=== PATIENT | male | born 1970 | race Caucasian/White ===

== ENCOUNTER → 2018-02-28 14:11 | Outpatient (REF) | payer OTHER, SELFPAY ==
[2018-02-28 20:48] LABS: Abs Immature Grans 0.02 k/cumm (0.0-0.09); Absolute Basophil Count 0.01 k/cumm (0.0-0.2); Absolute Eosinophil Count 0.07 k/cumm (0.0-0.7); Absolute Lymphocyte Count 0.82 k/cumm (1.2-3.4); Absolute Monocyte Count 0.76 k/cumm (0.11-0.7); Absolute Neutrophil Count 4.38 k/cumm (1.2-6.7); Basophils % 0.2; Eosinophils % 1.2; Immature Grans % 0.3; Lymphocytes % 13.5; Mean Corp. HGB Concentration 34.8 g/dL (32.0-36.0); Mean Corpuscular Hemoglobin 31.1 pg (27.0-33.0); Mean Corpuscular Volume 89.3 fL (80-95); Mean Platelet Volume 10.7 fL (8.0-11.0); Monocytes % 12.5; Neutrophils % 72.3; Platelet Count 204 x1000/uL (130-400); RBC 5.15 m/cumm (4.50-6.00); RBC Distribution Width 12.3 % (11.8-14.1); White Blood Cell Count 6.06 k/cumm (4.4-10.8)
[2018-02-28 21:12] LABS: ALT 61 U/L (12-78); AST 65 U/L (15-37); Albumin 3.9 g/dL (3.4-5.0); Alkaline Phosphatase 93 U/L (46-116); Anion Gap 16.2 mmol/L (3-11); BUN 16 mg/dL (7-18); Bilirubin, Total 0.4 mg/dL (0.2-1.0); CO2 21.8 mmol/L (21.0-32.0); CREATININE 1.07 mg/dL (0.70-1.30); Calcium 8.7 mg/dL (8.5-10.1); Chloride 98 mmol/L (98-107); Glucose 140 mg/dL (70-100); Sodium 136 mmol/L (136-145); Total Protein 7.7 g/dL (6.4-8.2)
[2018-02-28 22:23] LABS: Potassium 2.8 mmol/L (3.5-5.1)
== END ==
LOC: NCHCN 14:11
PROVIDERS: PCP Family Medicine; Visit Provider Nurse Practitioner Family
DX: R10.84 Generalized abdominal pain (principal); R19.7 Diarrhea, unspecified
CPT/HCPCS: 80053; 85025

== ENCOUNTER → 2018-03-01 11:44 | Outpatient (REF) | payer OTHER, SELFPAY ==
[2018-03-02 13:46] LABS: Campylobacter PCR SEE COMMENTS; Salmonella PCR SEE COMMENTS; Shiga Toxin PCR SEE COMMENTS; Shigella/Enteroinvasive Ecoli SEE COMMENTS
== END ==
LOC: NCHCN 11:44
PROVIDERS: PCP Family Medicine; Visit Provider Nurse Practitioner Family
DX: R19.7 Diarrhea, unspecified (principal)
CPT/HCPCS: 87329; 87505; 87177; 87324

== ENCOUNTER → 2018-03-12 09:17 | Outpatient (CLI) | payer OTHER, SELFPAY ==
[2018-03-12 10:01] LABS: HCT 45.3 % (40.0-50.0); HGB 15.7 g/dL (13.5-17.5); Mean Corp. HGB Concentration 34.7 g/dL (32.0-36.0); Mean Corpuscular Hemoglobin 32.2 pg (27.0-33.0); Mean Platelet Volume 9.5 fL (8.0-11.0); Platelet Count 252 x1000/uL (130-400); RBC 4.87 m/cumm (4.50-6.00); RBC Distribution Width 12.9 % (11.8-14.1); White Blood Cell Count 5.79 k/cumm (4.4-10.8)
[2018-03-12 11:28] LABS: ALT 58 U/L (12-78); AST 39 U/L (15-37); Albumin 3.6 g/dL (3.4-5.0); Alkaline Phosphatase 82 U/L (46-116); Anion Gap 9.3 mmol/L (3-11); BUN 15 mg/dL (7-18); Bilirubin, Total 0.5 mg/dL (0.2-1.0); CO2 28.7 mmol/L (21.0-32.0); CREATININE 1.09 mg/dL (0.70-1.30); Calcium 8.4 mg/dL (8.5-10.1); Chloride 100 mmol/L (98-107); Cholesterol 214 mg/dL (50-200); Glucose 126 mg/dL (70-100); HDL Cholesterol 35 mg/dL (40-60); LDL CHOLESTEROL 107 mg/dL (<100); Potassium 4.1 mmol/L (3.5-5.1); Sodium 138 mmol/L (136-145); Total Protein 7.1 g/dL (6.4-8.2); Triglyceride 532 mg/dL (30-150)
== END ==
PROVIDERS: PCP Family Medicine; Visit Provider Nurse Practitioner Family
DX: Z00.00 Encounter for general adult medical examination without abnormal findings (principal); E78.5 Hyperlipidemia, unspecified; I10 Essential (primary) hypertension
CPT/HCPCS: 36415; 80053; 80061; 83721; 85027

== ENCOUNTER 2018-03-25 08:17 | Outpatient (CLI) | payer OTHER, SELFPAY ==
[2018-03-25 10:36] LABS: Anion Gap 8.9 mmol/L (3-11); BUN 15 mg/dL (7-18); CO2 28.1 mmol/L (21.0-32.0); CREATININE 1.04 mg/dL (0.70-1.30); Chloride 100 mmol/L (98-107); Glucose 125 mg/dL (70-100); Magnesium 1.7 mg/dL (1.8-2.4); Potassium 3.8 mmol/L (3.5-5.1); Sodium 137 mmol/L (136-145)
== END 2018-03-25 08:37 ==
PROVIDERS: Nurse Practitioner; PCP Family Medicine; Visit Provider Family Medicine
DX: E87.6 Hypokalemia (principal); R19.7 Diarrhea, unspecified
CPT/HCPCS: 36415; 80048; 83735

== ENCOUNTER 2019-04-01 01:33 | Outpatient (CLI) | payer OTHER, SELFPAY ==
[2019-04-01 09:40] LABS: HCT 43.5 % (40.0-50.0); Mean Corp. HGB Concentration 34.5 g/dL (32.0-36.0); Mean Corpuscular Hemoglobin 31.8 pg (27.0-33.0); Mean Corpuscular Volume 92.4 fL (80-95); Mean Platelet Volume 10.1 fL (8.0-11.0); Platelet Count 245 x1000/uL (130-400); RBC 4.71 m/cumm (4.50-6.00); RBC Distribution Width 12.1 % (11.8-14.1); White Blood Cell Count 5.22 k/cumm (4.4-10.8)
[2019-04-01 10:15] LABS: ALT 45 U/L (16-63); AST 28 U/L (15-37); Alkaline Phosphatase 74 U/L (46-116); Anion Gap 7.9 mmol/L (3-11); BUN 13 mg/dL (7-18); Bilirubin, Total 0.5 mg/dL (0.2-1.0); CO2 33.1 mmol/L (21.0-32.0); CREATININE 0.94 mg/dL (0.70-1.30); Calcium 9.2 mg/dL (8.5-10.1); Calculated LDL 61 mg/dL; Chloride 99 mmol/L (98-107); Cholesterol 155 mg/dL (50-200); Glucose 114 mg/dL (70-100); HDL Cholesterol 51 mg/dL (40-60); Potassium 3.8 mmol/L (3.5-5.1); Sodium 140 mmol/L (136-145); Total Protein 7.3 g/dL (6.4-8.2); Triglyceride 219 mg/dL (30-150)
== END 2019-04-01 01:53 ==
PROVIDERS: PCP Family Medicine; Visit Provider Family Medicine
DX: E78.5 Hyperlipidemia, unspecified (principal); E87.6 Hypokalemia; I10 Essential (primary) hypertension; R19.5 Other fecal abnormalities; F10.10 Alcohol abuse, uncomplicated
CPT/HCPCS: 36415; 80053; 80061; 85027

== ENCOUNTER 2020-02-26 15:52 | Outpatient (REF) | payer OTHER, SELFPAY ==
[2020-02-26 21:21] LABS: ALT 48 U/L (16-63); AST 37 U/L (15-37); Albumin 4.1 g/dL (3.4-5.0); Alkaline Phosphatase 74 U/L (46-116); Anion Gap 7.2 mmol/L (3-11); BUN 14 mg/dL (7-18); Bilirubin, Total 0.6 mg/dL (0.2-1.0); CO2 32.8 mmol/L (21.0-32.0); CREATININE 0.96 mg/dL (0.70-1.30); Calcium 9.6 mg/dL (8.5-10.1); Calculated LDL 81 mg/dL (<100); Chloride 100 mmol/L (98-107); Cholesterol 184 mg/dL (<200); Glucose 127 mg/dL (74-106); HDL Cholesterol 50 mg/dL (40-60); Potassium 4.5 mmol/L (3.5-5.1); Sodium 140 mmol/L (136-145); Total Protein 7.6 g/dL (6.4-8.2); Triglyceride 265 mg/dL (<150)
== END 2020-02-26 16:12 ==
LOC: NCHCN 15:52
PROVIDERS: PCP Family Medicine; Visit Provider Family Medicine
DX: Z00.00 Encounter for general adult medical examination without abnormal findings (principal); E87.6 Hypokalemia; E78.5 Hyperlipidemia, unspecified; I10 Essential (primary) hypertension
CPT/HCPCS: 80053; 80061

== ENCOUNTER 2020-05-19 08:20 | Outpatient (REF) | payer OTHER, SELFPAY ==
[2020-05-19 21:44] LABS: Hemoglobin A1C 6.1 % (<5.7)
== END 2020-05-19 08:40 ==
LOC: NCHCN 08:20
PROVIDERS: PCP Family Medicine; Visit Provider Family Medicine
DX: R73.09 Other abnormal glucose (principal)
CPT/HCPCS: 83036

== ENCOUNTER 2021-02-17 10:04 | Day surgery (SDC) | payer OTHER, SELFPAY ==
--- NOTE | 2021-02-17 08:26 | W.PM.DSUDISC ---
Discharge Plan Disposition Patient Disposition: HOME Condition: Good Discharge Details Reason For Visit: Olecranon Bursectomy Attending Provider: Itz Vivar Primary Care Provider: Mehnaz Gallego Home Meds and New Rx's Prescriptions: New acetaminophen [Tylenol Extra Strength] 500 mg tablet 500 mg PO Q6H PRNQty: 30 RF: 0 ibuprofen 600 mg tablet 600 mg PO TID Qty: 30 RF: 0 oxycodone 5 mg tablet 5 mg PO Q4H PRNQty: 8 RF: 0 Continued losartan 50 MG tablet 50 mg PO DAILY Qty: 1 RF: 0 acyclovir [Zovirax] 200 MG/5 ML suspension 40 mg PO DAILY AM RF: 0 chlorthalidone 25 MG tablet 25 mg PO DAILY AM RF: 0 Discharge Instructions Additional Instructions: Decompression Discharge Instructions Activity: You may advance gentle motion of the elbow after the first few days, but no repetitive activities nor heavy lifting until surgical site has healed. You may apply ice. Medications: - You should take Tylenol and Ibuprofen around the clock. - You have been prescribed Oxycodone for breakthrough pain. Dressings: - The initial surgical dressing should stay in place for 3 days. It may then be removed and kept clean and dry. You should cover with a light gauze dressing. - You may shower after 3 days and get the wound wet. Follow-up: 10 days Referrals: Itz Vivar MD [ [facility] ST[facility]FF [facility]YSICIAN] - Activity:: Activity as Tolerated Remove Dressings/Wound Care:: 72 hours Shower/Bathe:: 72 hours Diet:: As Tolerated Discharge Orders Discharge Orders: Discharge Order (Routine); Ordered 02/17/21 Ordered By: Anai Granda DS: Diagnosis Discharge Diagnosis (1) Septic olecranon bursitis of right elbow: Status: Acute
--- NOTE | 2021-02-17 09:38 | W.ANESPRE ---
General Info Date of Service Date Performed: 02/17/21 Height: 6 ft 2 in Weight: 125.702 kg Body Mass Index (BMI): 35.6 Surgical Procedure: Operation Date: 02/17/21 13:25 Proposed Procedures Side Surgeon p RIGHT ELBOW BURSECTOMY Right Itz Vivar MD Meds Allergies and Home Medications Allergies Allergy/AdvReac Type Severity Reaction Status Date / Time bee venom protein (honey bee) Allergy Anaphylaxis Verified 02/17/21 10:22 lisinopril AdvReac Mild Post-nasal Verified 02/13/21 09:25 drip penicillin G AdvReac Mild Nausea Verified 02/13/21 09:25 hydrochlorothiazide AdvReac Post-nasal Verified 02/13/21 09:25 drip Home Medication Medication Instructions Recorded acyclovir [Zovirax] 40 mg PO DAILY AM 10/09/12 chlorthalidone 25 mg PO DAILY AM 10/09/12 losartan 50 mg PO DAILY #1 tab-cap 12/21/13 acetaminophen [Tylenol Extra 500 mg PO Q6H PRN #30 tab 02/17/21 Strength] escitalopram oxalate 20 mg PO DAILY 02/17/21 esomeprazole magnesium 20 mg PO DAILY 02/17/21 ibuprofen 600 mg PO TID #30 tab 02/17/21 oxycodone 5 mg PO Q4H PRN #8 tab 02/17/21 simvastatin 40 mg PO HS 02/17/21 Current Visit Medications: Current Medications Generic Name Dose Route Start Last Admin Trade Name Freq PRN Reason Stop Dose Admin Acetaminophen 650 mg 02/17/21 08:22 Acetaminophen 325 Mg Tab PO Q4H PRN PRN Hydrocodone Bitart/Acetaminophen 0 tab 02/17/21 08:22 Hydrocodone 5/Acetaminophen 325 Tab PO Q3H PRN PRN Pain Ringer's Solution 1,000 mls @ 80 mls/hr 02/17/21 06:00 IV 03/18/21 23:59 INFUSION KECIA Cefazolin Sodium/Dextrose 2 gm in 50 mls @ 100 mls/hr 02/17/21 06:00 Ancef Duplex IVPB 02/17/21 18:00 PREOP KECIA Ondansetron HCl 4 mg/ Sodium 52 mls @ 200 mls/hr 02/17/21 08:22 Chloride IVPB Q6H PRN PRN IV Miscellaneous Supplies 1 each 02/17/21 06:00 Iv Access IV 03/18/21 23:59 DIRECTED KECIA Sodium Chloride 0 ml 02/17/21 06:00 Normal Saline Flush 10 Ml Syr IV 03/18/21 23:59 PRN PRN Sodium Chloride 0 ml 02/17/21 06:00 Normal Saline 10 Ml Vial IJ 03/18/21 23:59 DIRECTED PRN Sterile Water 0 ml 02/17/21 06:00 Water,Injection,Sterile 10 Ml Vial IJ 03/18/21 23:59 DIRECTED PRN PFSH Active Problems Active Problems: Problem Status Onset Code Septic olecranon bursitis of right elbow M71.121 Medical History Medical History (Updated 02/17/21 @ 10:24 by Veronica Saeed) Hx of gastroesophageal reflux (GERD) Surgical History Surgical History (Updated 02/17/21 @ 10:23 by Veronica [email or web address]) Arthroplasty of knee (10/11/12) LEFT Hx of meniscectomy of right knee right Hx of rotator cuff surgery right Tobacco Smoking/Tobacco Use Status: Current every day Substance Use Substance use: Never Vital Signs and Lab Results Lab Results Blood Type / Crossmatch: No Data to Display Complete Blood Count: No Data to Display Complete Metabolic Panel: No Data to Display Liver Function Panel: No Data to Display Coagulation Panel: No Data to Display Cardiac Panel: No Data to Display Arterial Blood Gas: No Data to Display Venous Blood Gas: No Data to Display Pancreas Panel: No Data to Display Thyroid Panel: No Data to Display Infectious Disease: No Data to Display Blood Cultures: No Data to Display Toxicology Panel: No Data to Display Anesthesia Assessment and Plan Anesthesia History Personal History: No History of Anesthesia Complications Family History: No Family History of Anesthesia Complications Exercise Tolerance Exercise Tolerance: Metabolic Equivalents>4 Cardiac & Pulmonary Exam Cardiac Exam: Normal S1/S2 Heart Sounds Pulmonary Exam: Clear Bilateral Breath Sounds Airway Exam Known Difficult Airway: No Mallampati Class: 2 Mouth Opening: Normal (> 3cm) Thyromental Distance: Greater than 3 cm Neck Range of Motion: Full ROM Neck Circumference: Thick Teeth Condition: Normal Dentition ASA Classification ASA Score: ASA 2 Emergency Case?: No NPO Status NPO Status: NPO Clears >2 hours, Solids >8 hours Anesthesia Plan Resuscitation Status: Full Code Anesthesia Technique: General Anesthesia Airway Planned: Natural Airway Monitors Used: Standard Monitors
[2021-02-17 10:14] VITALS: BMI 35.6
[2021-02-17 10:34] VITALS: BP 135/90; PULSE 77; RESP 16; TEMP 36.2; O2SAT 97
[2021-02-17] MEDS: Lactated Ringers 1,000 ML 80 ML IV (11:00)
[2021-02-17] MEDS: ceFAZolin 2 GM/50 ML BAG IVPB (11:08)
[2021-02-17] MEDS: Bupivacaine 0.5% Pres-Free 30 ML VIAL (11:35)
[2021-02-17 11:57] VITALS: BP 127/85; PULSE 78; RESP 16; TEMP 36.4; O2SAT 93
--- NOTE | 2021-02-17 11:59 | W.ANESPOSTOP ---
Postoperative Evaluation Date, Time and Location Date Performed: 02/17/21 Time Performed: 11:59 Patient Location: Day Surgery Unit Vital Signs Most Recent Imported Vital Signs: Most Recent Vital Signs Temp Pulse Resp BP Pulse Ox 36.4 C L 78 16 127/85 93 02/17/21 11:57 02/17/21 11:57 02/17/21 11:57 02/17/21 11:57 02/17/21 11:57 Pain Score Most Recent Pain Score: Most Recent Pain Score Pain Level 2 02/17/21 11:57 Assessment Mental Status: Awake (Alert & Oriented to Patient Baseline) Airway and Respiratory Function: Patent airway with normal (patient baseline) respiratory exam Cardiovascular Function: Hemodynamically Stable Hydration Status: Adequately Hydrated Nausea & Vomiting: No Nausea or Vomiting Pain: Pt. Denies Any Pain Peripheral Nerve Block: Patient did not receive a nerve block
[2021-02-17 12:31] VITALS: BP 153/90; PULSE 68; RESP 16; TEMP 36.5; O2SAT 97
--- NOTE | 2021-02-17 12:57 | ROE_ITS ---
Date of service: 02/17/21 Time of Service: 11:57 Operative Note Operative Note DATE OF PROCEDURE: 02/17/21 PRE-OP DIAGNOSIS: Right olecranon bursitis POST-OP DIAGNOSIS: same PROCEDURE: Bursectomy of right olecranon bursa SURGEON: Itz Vivar OPERATIONS RESEARCH ANALYST: Anai Granda ANESTHESIA TYPE: General:No Airway Refer to Anesthesia Record ESTIMATED BLOOD LOSS: 50 PATHOLOGY: none sent TOURNIQUET TIME: 0 COMPLICATIONS: None Patient was transported to: same day Patient's condition: stable Indications: Elias is a 51-year-old who suffered a puncture wound to his right elbow and into the olecranon bursa. This had some notable swelling and persistent drainage. Eventually, this became infected and was treated with antibiotics. Despite clearing the infection he still had an area of drainage from the central portion of the bursa. Therefore, I offered bursectomy. I reviewed the risk of the procedure to include bleeding, infection, pain, stiffness, recurrence, continued drainage, need for repeat procedures. Despite these risks, he elected to proceed. Findings: There is a large bursa overlying the olecranon. There is notable fluid inside the bursa itself but no gross contamination or gross signs of purulence. There was thickened inflammatory tissue seen at its base with a thickened bursa around the olecranon. The bursa was removed and the soft tissues debrided. Procedure Description: Elias was greeted in the preoperative holding area. His identity was confirmed the correct site was identified and marked. The consent was reviewed the patient and signed. History and physical was updated. He was taken to the operating room and placed into the left lateral decubitus position. His right arm was placed over a bone foam arm grier for exposure to the olecranon. He was held in the side-lying position with a beanbag. All bony prominences well-padded. Prophylactic antibiotics in the form of cefazolin were administered. A timeout was performed for safe surgery. The right arm was prepped with ChloraPrep and draped in a standard fashion. While typically I would make a curvilinear incision over the olecranon there was a open wound in the central portion which I utilized in the incision. This was drawn on the skin. The proposed incision site was injected with 0.5% bupivacaine. I then incised the skin sharply down to the soft tissue and into the bursa. The medial there is a copious amount of fluid removed from the bursa. There is no gross purulence. There was notable inflammatory tissue seen at the base with a thickened bursa surrounding it. I then fully dissected the bursa away from the overlying soft tissues and with use of a rongeur and a Bovie electrocautery, remove the bursal tissue. This was taken circumferentially around the elbow and off of the triceps fascia as well as the periosteum of the ulna. Once this was resected the wound was thoroughly irrigated. I used a rongeur to remove any of the remaining tissue. I also utilized a rasp to smooth any prominences. There was notable ooze about the wound itself but there is no specific bleeding. The deep tissues were then closed with a 3-0 Vicryl. The skin was closed with a 4-0 nylon. The wound was then dressed with Xeroform, 4 x 4's, ABD, Kerlix and Ludin wrap. At the end the case all counts are correct. He tolerated procedure well transferred back to the supine position in the hospital stretcher and to the same-day surgery area.
== END 2021-02-17 12:33 | disposition home or self-care (01) ==
PROVIDERS: PCP Family Medicine; Visit Provider Student in an Organized Health Care Education/Training Program
PROC: (CPT 24105; principal; 2021-02-17 13:15)
DX: M71.121 Other infective bursitis, right elbow (principal)
CPT/HCPCS: 24105; J0690; J2250; J2704

== ENCOUNTER 2022-02-25 13:18 | Emergency (ER) | payer OTHER, SELFPAY ==
[2022-02-25 13:29] VITALS: BP 163/89; PULSE 91; RESP 20; TEMP 36.7; O2SAT 97
--- NOTE | 2022-02-25 14:45 | DI.RAD_ITS ---
Exam(s) XR KNEE RT 3V AP,LAT,ALEXSANDER EXAM: XR KNEE RT 3V AP,LAT,ALEXSANDER CLINICAL HISTORY: Swelling, R/O Effusion, Fx. TECHNIQUE: 2D digital imaging was performed. COMPARISON: CR RIGHT KNEE 3 VIEWS from 12/03/2013 FINDINGS: 3 views There is prominent prepatellar soft tissue swelling on this extends down anterior to the patellar lig ament. There is no radiopaque foreign body. No obvious patellar fracture. No radiographic evidence of osteomyelitis. Small joint effusion noted. Moderate narrowing of the medial compartment noted. Lateral compartment unremarkable. No osteophytes. Bone density normal. No osseous lesions IMPRESSION: The main finding here is prominent soft tissue swelling anterior to the patella. Given that there is no obvious trauma history here for, 1st consideration would be for prepatellar bursitis versus infec tious etiology. Close follow-up recommended. DATA REPOSITORY: RADIATION DOSE DELIVERED:
[2022-02-25 15:28] VITALS: BP 138/83; PULSE 83; RESP 16; TEMP 37; O2SAT 93
[2022-02-25 16:15] VITALS: BP 139/87; PULSE 85; RESP 16; TEMP 37.1; O2SAT 97
[2022-02-25 17:35] VITALS: BP 144/92; PULSE 83; RESP 16; TEMP 36.9; O2SAT 98
--- NOTE | 2022-02-25 17:37 | W.ED.GENAD ---
Discharge Plan Disposition Patient Disposition: HOME Condition: Stable Discharge Details Clinical Impression: Bursitis, prepatellar, right Primary Care Provider: Mehnaz Gallego ED Provider: Juan Pablo So Home Meds and New Rx's Prescriptions: Continued losartan 50 MG tablet 50 mg PO DAILY Qty: 1 acyclovir [Zovirax] 200 MG/5 ML suspension 40 mg PO DAILY AM chlorthalidone 25 MG tablet 25 mg PO DAILY AM acetaminophen [Tylenol Extra Strength] 500 mg tablet 500 mg PO Q6H PRNQty: 30 0RF ibuprofen 600 mg tablet 600 mg PO TID Qty: 30 0RF simvastatin 40 mg tablet 40 mg PO HS Label Comments: TAKE 1 TABLET BY MOUTH AT BEDTIME esomeprazole magnesium 20 mg capsule,delayed release(DR/EC) 20 mg PO DAILY Label Comments: TAKE 1 CAPSULE BY MOUTH EVERY DAY escitalopram oxalate 20 mg tablet 20 mg PO DAILY Label Comments: TAKE 1 TABLET BY MOUTH EVERY DAY Medical Decision Making 52-year-old gentleman presents with nontraumatic right knee pain, clinically most consistent with a prepatellar bursitis. He is afebrile, there is no warmth or erythema, no evidence of septic joint or septic bursitis. X-ray was ordered prior to my evaluation per protocol. I discussed the case with orthopedics, Dr. Wu. He did not recommend aspiration as it does not sound to be septic. Recommends compression wrap, anti-inflammatory, and avoiding kneeling on his knees and other direct pressure. Believes that if conservative measures are not resolving the issue then they could discuss aspiration in the office. I discussed this with the patient. He reports that he attempted to contact orthopedics today but they could not see him until next week and he did not want to wait for the aspiration. He declines compression or crutches. He did take 600 mg of ibuprofen and states he will continue taking [id number]. Patient is requesting discharge and would like to be verbally discharged, does not want to wait for his discharge instructions Standard discharge and return precautions were provided. Patient understands, is agreeable to this plan, and has no additional questions or concerns upon discharge. This documentation was generated using [employer] system, please disregard any oddities of phrase or misspellings. Medical Records Medical records reviewed: Yes I reviewed the patient's medical records. Imaging Data Radiologic Study: Attestation: I personally reviewed and interpreted this imaging study as follows: Imaging: X-Ray Radiologist's impression: Exam(s) XR KNEE RT 3V AP,LAT,ALEXSANDER EXAM: XR KNEE RT 3V AP,LAT,ALEXSANDER CLINICAL HISTORY: Swelling, R/O Effusion, Fx. TECHNIQUE: 2D digital imaging was performed. COMPARISON: CR RIGHT KNEE 3 VIEWS from 12/03/2013 FINDINGS: 3 views There is prominent prepatellar soft tissue swelling on this extends down anterior to the patellar ligament. There is no radiopaque foreign body. No obvious patellar fracture. No radiographic evidence of osteomyelitis. Small joint effusion noted. Moderate narrowing of the medial compartment noted. Lateral compartment unremarkable. No osteophytes. Bone density normal. No osseous lesions IMPRESSION: The main finding here is prominent soft tissue swelling anterior to the patella. Given that there is no obvious trauma history here for, 1st consideration would be for prepatellar bursitis versus infectious etiology. Close follow-up recommended. HPI General Mode of arrival: ambulatory. Date/Time Provider Initiated Documentation: 02/25/22 14:09. Limitations to Documentation: no limitations. Information obtained by: patient. History of Present Illness 52 year old M presents to the emergency department with the chief complaint of R knee pain, described as moderate, with intensity rated at 7. Quality is described as aching, and is localized to the right and lower extremity. Patient reports no radiation. Patient started experiencing this day(s) (5) and it has been constant. No relieving factors improve symptom(s), Movement worsens symptoms . Patient notes no other symptoms.. Patient did receive the following treatments prior to arrival, NSAID Related Data Home Medications Medication Instructions Recorded Confirmed acyclovir 200 mg/5 mL oral 40 mg PO DAILY AM 10/09/12 02/25/22 suspension (Zovirax) chlorthalidone 25 mg tablet 25 mg PO DAILY AM 10/09/12 02/25/22 losartan 50 mg tablet 50 mg PO DAILY #1 tab-cap 12/21/13 02/25/22 acetaminophen 500 mg tablet 500 mg PO Q6H PRN #30 tabs 02/17/21 02/25/22 (Tylenol Extra Strength) escitalopram oxalate 20 mg tablet 20 mg PO DAILY 02/17/21 02/25/22 esomeprazole magnesium 20 mg 20 mg PO DAILY 02/17/21 02/25/22 capsule,delayed release ibuprofen 600 mg tablet 600 mg PO TID #30 tabs 02/17/21 02/25/22 simvastatin 40 mg tablet 40 mg PO HS 02/17/21 02/25/22 Previous Rx's Medication Instructions Recorded acetaminophen 500 mg tablet 500 mg PO Q6H PRN #30 tabs 02/17/21 (Tylenol Extra Strength) ibuprofen 600 mg tablet 600 mg PO TID #30 tabs 02/17/21 Allergies Allergy/AdvReac Type Severity Reaction Status Date / Time bee venom protein (honey bee) Allergy Anaphylaxis Verified 02/25/22 13:32 lisinopril AdvReac Mild Post-nasal Verified 02/25/22 13:32 drip penicillin G AdvReac Mild Nausea Verified 02/25/22 13:32 hydrochlorothiazide AdvReac Post-nasal Verified 02/25/22 13:32 drip General Stated Complaint: Cellulitis MELISSA: 3 Review of Systems Constitutional Constitutional: Denies fever(s) and Denies weakness Musculoskeletal Musculoskeletal: Reports joint swelling, Denies numbness, Reports stiffness and Denies tingling Integumentary/Breasts Skin/Breast: Denies erythema and Denies rash Neurologic Neurologic: Denies numbness, Denies tingling and Denies weakness PFSH All Active Problems (Updated 02/25/22 @ 21:02 by DONALD Donovan) Bursitis, prepatellar, right (Acute) Septic olecranon bursitis of right elbow (Acute) s/p bursectomy 02/17/2021 Medical History Hx of gastroesophageal reflux (GERD) Surgical History Arthroplasty of knee (10/11/12) LEFT Hx of meniscectomy of right knee right Hx of rotator cuff surgery right Social History Smoking/Tobacco Use Status: Current every day Tobacco Type: cigarettes Smoking risk assessment performed?: Yes Alcohol Intake: current Alcohol Intake frequency: 0-2 drinks per day Alcohol type: beer Drug use: Never Substance use type: does not use Current gender identity: male Do you feel safe at home: Yes Do you feel safe in your relationship?: Yes Exam Const General: cooperative, healthy appearing, comfortable and no acute distress Orientation: alert and awake [facility] Head: normal to inspection, normocephalic and atraumatic Eyes Conjunctivae: conjunctivae normal Neck Neck: normal visual inspection, trachea midline and supple Resp Effort & Inspection: normal respiratory effort and able to speak in complete sentences Cardio Rate: regular rate Rhythm: regular rhythm Skin General skin exam: no rashes or lesions noted Neuro General: patient alert, patient awake, moves all extremities and no focal motor deficits Cognition: normal cognition Speech: speech normal Gait: antalgic (Minimally) Motor: muscle tone normal throughout Sensory Exam: no sensory deficits noted Extrem General: full ROM and capillary refill normal Other: Right knee with mild prepatellar swelling and tenderness. Stable, full range of motion. Neuro, vascular, tendon intact. There is no erythema, warmth, pointing abscess, lymphangitic streaking. Psych Appearance: grossly normal Mental Status: mental status grossly normal Course Vital Signs Vital signs: Vital Signs Temperature 36.7 C 02/25/22 13:29 Pulse 91 H 02/25/22 13:29 Respiratory Rate 20 02/25/22 13:29 Blood Pressure 163/89 H 02/25/22 13:29 Pulse Oximetry 97 02/25/22 13:29 Temperature 36.9 C 02/25/22 17:35 Temperature Source Tympanic 02/25/22 17:35 Pulse 83 02/25/22 17:35 Respiratory Rate 16 02/25/22 17:35 Respiratory Effort 02/25/22 13:34 Blood Pressure 144/92 H 02/25/22 17:35 Blood Pressure Position Sitting 02/25/22 13:29 Pulse Oximetry 98 02/25/22 17:35 Oxygen Delivery Method Room Air 02/25/22 17:35 Oxygen Flow Rate 0 02/25/22 17:35 Pain Level 7 02/25/22 17:35
[2022-02-25] MEDS: Ibuprofen 600 MG TAB PO (17:40)
== END 2022-02-25 17:56 | disposition home or self-care (01) ==
PROVIDERS: Emergency Provider Physician Assistant; PCP Family Medicine
DX: M70.41 Prepatellar bursitis, right knee (principal); F17.210 Nicotine dependence, cigarettes, uncomplicated
CPT/HCPCS: 73562; 99283; 99282

== ENCOUNTER 2022-04-14 09:14 | Outpatient (REF) | payer OTHER, SELFPAY ==
[2022-04-14 16:55] LABS: Abs Immature Grans 0.03 10^3/uL (0.0-0.06); Absolute Basophil Count 0.03 10^3/uL (0.0-0.2); Absolute Eosinophil Count 0.09 10^3/uL (0.0-0.7); Absolute Lymphocyte Count 1.08 10^3/uL (1.2-3.4); Absolute Monocyte Count 0.49 10^3/uL (0.1-0.8); Absolute Neutrophil Count 2.83 10^3/uL (1.2-6.7); Basophils % 0.7; Immature Grans % 0.7; Lymphocytes % 23.7; Monocytes % 10.8; Neutrophils % 62.1; WBC 4.55 10^3/uL (4.4-10.8)
[2022-04-14 17:29] LABS: ESR 23 mm/hr (0-20)
[2022-04-14 17:50] LABS: Albumin 3.9 g/dL (3.4-5.0); Alkaline Phosphatase 88 U/L (46-116); Anion Gap 14.3 mmol/L (3-11); BUN 19 mg/dL (7-18); Bilirubin, Total 0.5 mg/dL (0.2-1.0); CO2 26.7 mmol/L (21.0-32.0); Calcium 9.5 mg/dL (8.5-10.1); Chloride 88 mmol/L (98-107); Cholesterol 261 mg/dL (<200); Estimated GFR 91.12 (mL/min/1.73m2); Glucose 417 mg/dL (74-106); HDL Cholesterol 31 mg/dL (40-60); Potassium 3.4 mmol/L (3.5-5.1); Sodium 129 mmol/L (136-145); Total Protein 7.9 g/dL (6.4-8.2)
[2022-04-14 17:52] LABS: Triglyceride 1330 mg/dL (<150)
[2022-04-14 18:03] LABS: LDL CHOLESTEROL 85 mg/dL (<100)
[2022-04-14 18:16] LABS: AST 13 U/L (15-37)
[2022-04-14 18:17] LABS: ALT 19 U/L (16-63)
== END 2022-04-14 09:15 | disposition home or self-care (01) ==
LOC: NCHCN 09:14
PROVIDERS: PCP Family Medicine; Visit Provider Family Medicine
DX: E11.9 Type 2 diabetes mellitus without complications (principal)
CPT/HCPCS: 80053; 80061; 83721; 85048; 85652; 85007

== ENCOUNTER 2023-11-28 13:56 | Outpatient (REF) | payer BC, SELFPAY ==
[2023-11-28 16:47] LABS: Hemoglobin A1C 6.3 % (<5.7)
[2023-11-28 18:21] LABS: ALT 40 U/L (16-63); AST 26 U/L (15-37); Albumin 4.3 g/dL (3.4-5.0); Alkaline Phosphatase 63 U/L (46-116); Anion Gap 12.5 mmol/L (3-11); BUN 18 mg/dL (7-18); Bilirubin, Total 0.7 mg/dL (0.2-1.0); CO2 28.5 mmol/L (21.0-32.0); Calcium 9.6 mg/dL (8.5-10.1); Calculated LDL 166 mg/dL (<100); Chloride 97 mmol/L (98-107); Cholesterol 254 mg/dL (<200); Estimated GFR 90.56 (mL/min/1.73m2); Glucose 154 mg/dL (74-106); HDL Cholesterol 62 mg/dL (40-60); Potassium 3.8 mmol/L (3.5-5.1); Sodium 138 mmol/L (136-145); Total Protein 7.7 g/dL (6.4-8.2); Triglyceride 132 mg/dL (<150)
== END 2023-11-28 13:57 | disposition home or self-care (01) ==
LOC: NCHCN 13:56
PROVIDERS: PCP Family Medicine; Visit Provider Family Medicine
DX: Z00.00 Encounter for general adult medical examination without abnormal findings (principal)
CPT/HCPCS: 80053; 80061; 83036; 84154

== ENCOUNTER 2024-12-03 12:43 | Outpatient (REF) | payer OTHER, SELFPAY ==
[2024-12-03 16:26] LABS: ALT 37 U/L (16-63); AST 28 U/L (15-37); Alkaline Phosphatase 63 U/L (46-116); Anion Gap 6.4 mmol/L (3-11); BUN 16 mg/dL (7-18); Bilirubin, Total 0.5 mg/dL (0.2-1.0); CO2 33.6 mmol/L (21.0-32.0); Calcium 9.7 mg/dL (8.5-10.1); Calculated LDL 156 mg/dL (<100); Chloride 98 mmol/L (98-107); Cholesterol 259 mg/dL (<200); Glucose 155 mg/dL (74-106); HDL Cholesterol 56 mg/dL (>or=40); Sodium 138 mmol/L (136-145); Total Protein 7.6 g/dL (6.4-8.2); Triglyceride 235 mg/dL (<150)
[2024-12-03 16:47] LABS: GGT 134 U/L (15-85)
== END 2024-12-03 12:44 | disposition home or self-care (01) ==
LOC: NCHCN 12:43
PROVIDERS: PCP Family Medicine; Visit Provider Family Medicine
DX: I10 Essential (primary) hypertension (principal); E78.5 Hyperlipidemia, unspecified; F10.10 Alcohol abuse, uncomplicated
CPT/HCPCS: 80053; 80061; 82977